=== PATIENT | male | born 1985 | race Caucasian/White ===

== ENCOUNTER 2016-10-16 16:03 | Inpatient (IN) | payer OTHER ==
[2016-10-16 16:55] VITALS: BMI 24.9
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
[2016-10-16] MEDS ORDERED: chlordiazePOXIDE HCL 25 MG CAPSULE PO ONE (21:06)
[2016-10-16] MEDS ORDERED: hydrOXYzine PAMOATE 50 MG CAPSULE (FP) PO PRN (21:06)
[2016-10-16] MEDS ORDERED: ACETAMINOPHEN 325 MG TABLET (FP) PO PRN (21:06)
[2016-10-16] MEDS ORDERED: LOPERAMIDE HCL 2 MG CAPSULE PO PRN (21:06)
[2016-10-16] MEDS ORDERED: MAGNESIUM HYDROX 2400MG/30ML ORAL SUSPENSION 30 ML CUP PO PRN (21:06)
[2016-10-16] MEDS ORDERED: MAGNESIUM CITRATE 300 ML BOTTLE PO PRN (21:06)
[2016-10-16] MEDS ORDERED: MAG HYDROX/AL HYDROX/SIMETH 30 ML UNIT-DOSE CUP PO PRN (21:06)
[2016-10-16] MEDS ORDERED: P-EPHED 60MG/TRIPROLIDI 2.5MG TABLET PO PRN (21:06)
[2016-10-16] MEDS ORDERED: IBUPROFEN 400 MG TABLET (FP) PO PRN (21:06)
[2016-10-16] MEDS ORDERED: chlordiazePOXIDE HCL 25 MG CAPSULE PO PRN (21:06)
[2016-10-16] MEDS ORDERED: guaiFENesin/D-METHORPHAN HB 10 ML UNIT-DOSE CUPS PO PRN (21:06)
[2016-10-16] MEDS ORDERED: MENTHOL/PHENOL 1 EACH UD MM PRN (21:06)
[2016-10-16] MEDS ORDERED: ALBUTEROL SO4 6.7 GM HFA INHALER IH PRN (21:11)
[2016-10-16] MEDS: THIAMINE HCL 100 MG TABLET (FP) PO SCH (23:11)
[2016-10-16] MEDS: chlordiazePOXIDE HCL 25 MG CAPSULE PO SCH (23:11)
[2016-10-16] MEDS: BACITRACIN 30 GM TUBE TOPICAL OINTMENT TP SCH (23:14)
[2016-10-16] MEDS ORDERED: INFLUENZA VACCINE 45 MCG/0.5 ML (MDV 16-17) IM ONE (23:15)
[2016-10-17] MEDS ORDERED: PNEUMOC 13-VAL CONJ-DIP CRM/PF 0.5 ML DISP.SYRIN IM ONE (00:01)
[2016-10-17] MEDS ORDERED: INFLUENZA VACCINE 45 MCG/0.5 ML (MDV 16-17) IM ONE ×2 (00:01→12:00)
[2016-10-17] MEDS ORDERED: PNEUMOCOCCAL 23 VACCINE 0.5 ML VIAL IM ONE ×2 (00:01→12:00)
[2016-10-17] MEDS: chlordiazePOXIDE HCL 25 MG CAPSULE PO SCH ×4 (06:16→22:25)
[2016-10-17] MEDS ORDERED: BACITRACIN 0.9 GM PACKET ONE (09:52)
[2016-10-17 10:15] LABS: MCH 33.3 pg (25.7-33.7); MCHC 34.6 g/dl (32.0-35.9); MEAN CELL VOLUME 96.3 fl (80-96); MEAN PLT VOLUME 8.5 fl (7.5-11.1); PLATELET COUNT 153 K/MM3 (134-434); RDW 13.1 % (11.9-15.9); WHITE BLOOD COUNT 3.6 K/mm3 (4.0-10.0)
[2016-10-17 10:24] LABS: ALBUMIN 3.4 g/dl (3.4-5.0); ANION GAP 11 (8-16); CALCIUM 8.3 mg/dL (8.5-10.1); CO2 27 mmol/L (21-32); GLUCOSE,RANDOM 99 mg/dL (74-106); SGOT/AST 45 U/L (15-37); SGPT/ALT 33 U/L (12-78)
[2016-10-17 10:26] LABS: ALK PHOS 83 U/L (45-117); BILIRUBIN,TOTAL 0.3 mg/dL (0.2-1.0); TOT PROT 7.1 g/dl (6.4-8.2)
[2016-10-17] MEDS: PRENATAL VITAMINS W/ FOLIC ACID TABLET (FP) PO SCH (10:43)
[2016-10-17] MEDS: BACITRACIN 30 GM TUBE TOPICAL OINTMENT TP SCH ×2 (10:43→22:25)
--- NOTE | 2016-10-17 11:26 | PN ---
S CIWA - CIWA Score Nausea/Vomitin Muscle Tremors: 2 Anxiety: 2 Agitation: 2 Paroxysmal Sweats: 3 Orientation: 0-Oriented Tacttile Disturbances: 1-Very Mild Itch/Numbness Auditory Disturbances: 0-None Visual Disturbances: 0-None Headache: 0-None Present CIWA-Ar Total Score: 12 S Progress Note (SOAP) Subjective: interrupted sleep, sweats Objective: 10/17/16 11:24 Vital Signs Temperature 97.8 F 10/17/16 09:52 Pulse Rate 92 H 10/17/16 09:52 Respiratory Rate 18 10/17/16 09:52 Blood Pressure 147/78 10/17/16 09:52 O2 Sat by Pulse Oximetry (%) Laboratory Tests 10/17/16 10/17/16 08:00 08:00 WBC 3.6 L D RBC 4.08 Hgb 13.6 Hct 39.3 MCV 96.3 H MCHC 34.6 RDW 13.1 Plt Count 153 MPV 8.5 Sodium 146 H Potassium 3.4 L Chloride 108 H Carbon Dioxide 27 Anion Gap 11 BUN 9 D Creatinine 1.0 Creat Clearance w eGFR > 60 Random Glucose 99 D Calcium 8.3 L Total Bilirubin 0.3 D AST 45 H D ALT 33 Alkaline Phosphatase 83 Total Protein 7.1 Albumin 3.4 pt aox3 in nad ambulating Assessment: 10/17/16 11:25 withdrawl sx's hypokalemia Plan: cont. detox increase fluids k dur 20meg /d x 2
[2016-10-17 11:46] LABS: HIV 1 & 2 AB NEGATIVE; HIV 1 AGp24 NEGATIVE
[2016-10-17 16:48] LABS: URINE APPEARANCE CLEAR; URINE BILIRUBIN NEGATIVE (NEGATIVE); URINE BLOOD NEGATIVE (NEGATIVE); URINE COLOR YELLOW; URINE GLUCOSE (UA) NEGATIVE (NEGATIVE); URINE KETONE NEGATIVE (NEGATIVE); URINE LEUK ESTERASE NEGATIVE (NEGATIVE); URINE NITRITE NEGATIVE (NEGATIVE); URINE PROTEIN NEGATIVE (NEGATIVE); URINE UROBILINOGEN NEGATIVE E.U./dl (0.2-1.0)
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
--- NOTE | 2016-10-17 21:34 | EKG ---
Test Reason : Blood Pressure : / mmHG Vent. Rate : 086 BPM Atrial Rate : 086 BPM P-R Int : 132 ms QRS Dur : 094 ms QT Int : 356 ms P-R-T Axes : 063 036 044 degrees QTc Int : 426 ms NORMAL SINUS RHYTHM WITH SINUS ARRHYTHMIA VOLTAGE CRITERIA FOR LEFT VENTRICULAR HYPERTROPHY ABNORMAL ECG NO PREVIOUS ECGS AVAILABLE Confirmed by DARI HENNING MD ([id number]) on 10/17/2016 9:34:32 PM Referred By: Confirmed By:DARI HENNING MD
[2016-10-17] MEDS: THIAMINE HCL 100 MG TABLET (FP) PO SCH (22:25)
[2016-10-17] MEDS: diphenhydrAMINE HCL 50 MG CAPSULE PO PRN (22:26)
[2016-10-18] MEDS: chlordiazePOXIDE HCL 25 MG CAPSULE PO SCH ×4 (05:56→17:55)
[2016-10-18] MEDS: BACITRACIN 30 GM TUBE TOPICAL OINTMENT TP SCH ×2 (10:00→22:34)
[2016-10-18] MEDS: PRENATAL VITAMINS W/ FOLIC ACID TABLET (FP) PO SCH (10:42)
[2016-10-18] MEDS: NICOTINE 21 MG/24 HOURS TOPICAL PATCH TD SCH (10:42)
[2016-10-18] MEDS ORDERED: POTASSIUM CHLORIDE TABS 20 MEQ TABLET.ER (FP) PO ONE ×2 (10:58→11:35)
--- NOTE | 2016-10-18 11:03 | PN ---
S CIWA - CIWA Score Nausea/Vomitin Muscle Tremors: 2 Anxiety: 2 Agitation: 1-Slight > Activity Paroxysmal Sweats: 2 Orientation: 0-Oriented Tacttile Disturbances: 1-Very Mild Itch/Numbness Auditory Disturbances: 0-None Visual Disturbances: 0-None Headache: 0-None Present CIWA-Ar Total Score: 10 S Progress Note (SOAP) Subjective: INTERRUPTED SLEEP Objective: 10/18/16 11:00 Vital Signs Temperature 95.4 F L 10/18/16 09:56 Pulse Rate 64 10/18/16 09:56 Respiratory Rate 16 10/18/16 09:56 Blood Pressure 109/59 10/18/16 09:56 O2 Sat by Pulse Oximetry (%) Laboratory Results - last 24 hr 10/17/16 10/17/16 10/17/16 08:00 08:00 14:00 Urine Color Yellow Urine Appearance Clear Urine pH 6.0 Ur Specific [place] 1.025 Urine Protein Negative Urine Glucose (UA) Negative Urine Ketones Negative Urine Blood Negative Urine Nitrite Negative Urine Bilirubin Negative Urine Urobilinogen Negative Ur Leukocyte Esterase Negative RPR Titer Nonreactive HIV 1&2 Antibody Screen Negative HIV P24 Antigen Negative PT AOX3 IN AND AMBULATING Assessment: 10/18/16 11:01 WITHDRAWL SX'S HYPOKALEMIA -K REPLACED Plan: CONT. DETOX INCREASE FLUIDS
[2016-10-18] MEDS: THIAMINE HCL 100 MG TABLET (FP) PO SCH (22:34)
[2016-10-18] MEDS: chlordiazePOXIDE 5 MG CAPSULE PO SCH (22:34)
[2016-10-19] MEDS: chlordiazePOXIDE 5 MG CAPSULE PO SCH ×3 (05:20→17:55)
[2016-10-19] MEDS ORDERED: POTASSIUM CHLORIDE TABS 20 MEQ TABLET.ER (FP) PO ONE (10:00)
[2016-10-19] MEDS: NICOTINE 21 MG/24 HOURS TOPICAL PATCH TD SCH (10:30)
[2016-10-19] MEDS: BACITRACIN 30 GM TUBE TOPICAL OINTMENT TP SCH ×2 (10:30→22:56)
[2016-10-19] MEDS: PRENATAL VITAMINS W/ FOLIC ACID TABLET (FP) PO SCH (10:30)
--- NOTE | 2016-10-19 11:15 | PN ---
BHS Progress Note (SOAP) Subjective: tired Objective: 10/19/16 11:12 Vital Signs Temperature 97.3 F L 10/19/16 09:45 Pulse Rate 84 10/19/16 09:45 Respiratory Rate 18 10/19/16 09:45 Blood Pressure 148/93 10/19/16 09:45 O2 Sat by Pulse Oximetry (%) awake/alert ambulating no acute distress Assessment: 10/19/16 11:15 withdrawal sx Plan: continue detox increase fluids d/c in am
[2016-10-19] MEDS ORDERED: cloNIDine HCL 0.1 MG TABLET PO ONE (15:13)
[2016-10-19] MEDS: chlordiazePOXIDE HCL 10 MG CAPSULE PO SCH (22:54)
[2016-10-19] MEDS: THIAMINE HCL 100 MG TABLET (FP) PO SCH (22:54)
[2016-10-19] MEDS: diphenhydrAMINE HCL 50 MG CAPSULE PO PRN (23:41)
[2016-10-20] MEDS: chlordiazePOXIDE HCL 10 MG CAPSULE PO SCH ×2 (05:53→10:33)
--- NOTE | 2016-10-20 08:24 | PN ---
S Progress Note (SOAP) Subjective: ALERT,NO COMPLAINT Objective: 10/20/16 08:23 Vital Signs Temperature 97.3 F L 10/20/16 06:35 Pulse Rate 66 10/20/16 06:35 Respiratory Rate 16 10/20/16 06:35 Blood Pressure 122/61 10/20/16 06:35 O2 Sat by Pulse Oximetry (%) Assessment: 10/20/16 08:23 DETOX COMPLETED,NO WITHDRAWAL SYMPTOM Plan: DISCHARGE TODAY,FOLLOW UP WITH AFTER CARE PROGRAM ARRANGEMENT
--- NOTE | 2016-10-20 08:29 | DS ---
[facility] Detox Discharge Summary Admission Date: 10/16/16 Discharge Date: 10/20/16 - History Present History: Alcohol Dependence Additional Comments: FOLLOW UP WITH AFTER [facility] PROGRAM ARRANGEMENT REVELATION Pertinent Past History: ASTHMA NICOTINE DEPENDENCE - Physical Exam Results Vital Signs: Vital Signs Temperature 97.3 F L 10/20/16 06:35 Pulse Rate 66 10/20/16 06:35 Respiratory Rate 16 10/20/16 06:35 Blood Pressure 122/61 10/20/16 06:35 O2 Sat by Pulse Oximetry (%) Pertinent Admission Physical Exam Findings: WITHDRAWAL SYMPTOM - Treatment Hospital Course: Detox Protocol Followed, Detoxed Safely, Responded well, Discharged Condition Good, Rehab Referral Accepted Patient has Accepted a Rehab Referral to: [facility] - Medication Discharge Medications: Ambulatory Orders Albuterol Sulfate Inhaler - [Ventolin Hfa Inhaler -] 1 - 2 inh PO Q4H 11/12/15 - Diagnosis (1) Alcohol dependence with uncomplicated withdrawal Current Visit: Yes Status: Acute (2) Asthma Current Visit: Yes Status: Chronic (3) Nicotine dependence Current Visit: Yes Status: Acute (4) Seizure Current Visit: No Status: Suspected (5) Syncope Current Visit: No Status: Suspected (6) Anxiety and depression Current Visit: Yes Status: Acute - AMA Did Patient Leave Against Medical Advice: No
[2016-10-20] MEDS ORDERED: BACITRACIN 0.9 GM PACKET ONE (09:47)
[2016-10-20 09:53] VITALS: BP 125/75; PULSE 94; TEMP 98.2
[2016-10-20] MEDS: NICOTINE 21 MG/24 HOURS TOPICAL PATCH TD SCH (10:33)
[2016-10-20] MEDS: PRENATAL VITAMINS W/ FOLIC ACID TABLET (FP) PO SCH (10:33)
[2016-10-20] MEDS: BACITRACIN 30 GM TUBE TOPICAL OINTMENT TP SCH (10:33)
== END 2016-10-20 13:42 | disposition other institution (70) | DRG 775 ==
LOC: YASAS 16:03 → Y6N 20:51
PROVIDERS: ADMIT Internal Medicine; ATTEND Internal Medicine Addiction Medicine
PROC: HZ2ZZZZ Detoxification Services for Substance Abuse Treatment (ICD-10-PCS; principal; 2016-10-20)
DX: F10.230 Alcohol dependence with withdrawal, uncomplicated (principal); F17.210 Nicotine dependence, cigarettes, uncomplicated; F41.8 Other specified anxiety disorders; J45.20 Mild intermittent asthma, uncomplicated; R56.9 Unspecified convulsions; R55 Syncope and collapse; Z87.81 Personal history of (healed) traumatic fracture
CPT/HCPCS: 36415; 80053; 81003; 85027; 86593; 87389; 93005; 93010

== ENCOUNTER 2016-10-20 14:22 | Inpatient (IN) | payer OTHER ==
[2016-10-20 15:25] VITALS: BMI 26.0
[2016-10-20] MEDS ORDERED: MENTHOL/PHENOL 1 EACH UD MM PRN (15:51)
[2016-10-20] MEDS ORDERED: MAGNESIUM HYDROX 2400MG/30ML ORAL SUSPENSION 30 ML CUP PO PRN (15:51)
[2016-10-20] MEDS ORDERED: ACETAMINOPHEN 325 MG TABLET (FP) PO PRN (15:51)
[2016-10-20] MEDS ORDERED: LOPERAMIDE HCL 2 MG CAPSULE PO PRN (15:51)
[2016-10-20] MEDS ORDERED: guaiFENesin/D-METHORPHAN HB 10 ML UNIT-DOSE CUPS PO PRN (15:51)
[2016-10-20] MEDS ORDERED: hydrOXYzine PAMOATE 50 MG CAPSULE (FP) PO PRN (15:51)
[2016-10-20] MEDS ORDERED: P-EPHED 60MG/TRIPROLIDI 2.5MG TABLET PO PRN (15:51)
[2016-10-20] MEDS ORDERED: MAGNESIUM CITRATE 300 ML BOTTLE PO PRN (15:51)
--- NOTE | 2016-10-20 15:53 | HP ---
[facility] Re[facility] Assess/Revision - Admission History Admitted to Rehab from: [facility] [address] [facility] Date of Admission to Rehab: 10/20/16 - Vital signs Vital Signs: Vital Signs Period Temp Pulse Resp BP Sys/Hall Pulse Ox Last 24 Hr 97.8 F 90 16 132/68 - Findings Detox History & Physical reviewed: Yes Concur with findings: Yes Comments/Additional Findings: FOR REHAB PROTOCOL
[2016-10-20] MEDS: NICOTINE 21 MG/24 HOURS TOPICAL PATCH TD SCH (17:48)
[2016-10-20] MEDS: THIAMINE HCL 100 MG TABLET (FP) PO SCH (21:52)
[2016-10-21] MEDS: PRENATAL VITAMINS W/ FOLIC ACID TABLET (FP) PO SCH (10:02)
[2016-10-21] MEDS: NICOTINE 21 MG/24 HOURS TOPICAL PATCH TD SCH (10:02)
[2016-10-21] MEDS: THIAMINE HCL 100 MG TABLET (FP) PO SCH (22:21)
[2016-10-21] MEDS: IBUPROFEN 400 MG TABLET (FP) PO PRN (22:23)
[2016-10-22] MEDS: NICOTINE 21 MG/24 HOURS TOPICAL PATCH TD SCH (09:42)
[2016-10-22] MEDS: PRENATAL VITAMINS W/ FOLIC ACID TABLET (FP) PO SCH (09:42)
[2016-10-22] MEDS: MAG HYDROX/AL HYDROX/SIMETH 30 ML UNIT-DOSE CUP PO PRN (19:26)
[2016-10-22] MEDS: THIAMINE HCL 100 MG TABLET (FP) PO SCH (22:25)
[2016-10-23] MEDS: PRENATAL VITAMINS W/ FOLIC ACID TABLET (FP) PO SCH (09:52)
[2016-10-23] MEDS: NICOTINE 21 MG/24 HOURS TOPICAL PATCH TD SCH (09:52)
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
[2016-10-23] MEDS: THIAMINE HCL 100 MG TABLET (FP) PO SCH (21:45)
[2016-10-23] MEDS: QUEtiapine FUMARATE 50 MG TABLET PO SCH (21:45)
[2016-10-24] MEDS: PRENATAL VITAMINS W/ FOLIC ACID TABLET (FP) PO SCH (10:41)
[2016-10-24] MEDS: NICOTINE 21 MG/24 HOURS TOPICAL PATCH TD SCH (10:41)
[2016-10-24] MEDS: QUEtiapine FUMARATE 50 MG TABLET PO SCH (21:47)
[2016-10-24] MEDS: THIAMINE HCL 100 MG TABLET (FP) PO SCH (21:47)
[2016-10-25] MEDS: PRENATAL VITAMINS W/ FOLIC ACID TABLET (FP) PO SCH (09:44)
[2016-10-25] MEDS: NICOTINE 21 MG/24 HOURS TOPICAL PATCH TD SCH (09:44)
[2016-10-25] MEDS: QUEtiapine FUMARATE 50 MG TABLET PO SCH (22:16)
[2016-10-25] MEDS: THIAMINE HCL 100 MG TABLET (FP) PO SCH (22:16)
[2016-10-26] MEDS: NICOTINE 21 MG/24 HOURS TOPICAL PATCH TD SCH (09:35)
[2016-10-26] MEDS: PRENATAL VITAMINS W/ FOLIC ACID TABLET (FP) PO SCH (09:35)
[2016-10-26] MEDS: QUEtiapine FUMARATE 50 MG TABLET PO SCH (22:28)
[2016-10-26] MEDS: MAG HYDROX/AL HYDROX/SIMETH 30 ML UNIT-DOSE CUP PO PRN (22:28)
[2016-10-26] MEDS: THIAMINE HCL 100 MG TABLET (FP) PO SCH (22:28)
[2016-10-27] MEDS: NICOTINE 21 MG/24 HOURS TOPICAL PATCH TD SCH (09:47)
[2016-10-27] MEDS: PRENATAL VITAMINS W/ FOLIC ACID TABLET (FP) PO SCH (09:48)
--- NOTE | 2016-10-27 11:08 | PN ---
Psychiatric Progress Note Vital Signs: Vital Signs Period Temp Pulse Resp BP Sys/Hall Pulse Ox Last 24 Hr 98.1 F 67 18-18 117/67 Date of Session: 10/27/16 Chief Complaint:: Refusing to take Seroquel HPI: Patient addressing Alcohol Dependence comorbid with Nicotine Dependence and Substance-Induced Mood Disorder ROS: Asthma Current Medications: Active Medications Generic Name Dose Route Start Last Admin Trade Name Freq PRN Reason Stop Dose Admin Acetaminophen 650 mg 10/20/16 15:51 Tylenol - PO Q4H PRN FEVER OR PAIN Al Hydroxide/Mg Hydroxide 30 ml 10/20/16 15:51 10/26/16 22:28 Mylanta Oral Suspension - PO 30 ml Q6H PRN Administration DYSPEPSIA Diphenhydramine HCl 50 mg 10/20/16 15:51 Benadryl - PO HSMR1 PRN FOR ITCHING Eucalyptus/Menthol/Phenol/Sorbitol 1 each 10/20/16 15:51 Cepastat Lozenge - MM Q4H PRN SORE THROAT Guaifenesin 10 ml 10/20/16 15:51 Robitussin Dm - PO Q6H PRN COUGH Hydroxyzine Pamoate 50 mg 10/20/16 15:51 Vistaril - PO Q4H PRN AGITATION Ibuprofen 400 mg 10/20/16 15:51 10/21/16 22:23 Motrin - PO 400 mg Q6H PRN Administration PAIN Loperamide HCl 4 mg 10/20/16 15:51 Imodium - PO Q6H PRN DIARRHEA Magnesium Hydroxide 30 ml 10/20/16 15:51 Milk Of Magnesia - PO DAILY PRN CONSTIPATION Nicotine 21 mg 10/20/16 16:00 10/27/16 09:47 Nicoderm Patch - TD 21 mg DAILY CHON Administration Multivit/Folic Acid/Iron 1 tab 10/21/16 10:00 10/27/16 09:48 Vitamins ([facility]) - PO 1 tab DAILY CHON Administration Pseudoephedrine/Triprolidine 1 combo 10/20/16 15:51 Actifed - PO TID PRN NASAL CONGESTION Thiamine HCl 100 mg 10/20/16 22:00 10/26/16 22:28 Vitamin B1 - PO Not Given HS [facility] Medication(s) Change(s): Change Seroquel to 50 mg po HS prn for insomnia Current Side Effect: No Lab tests ordered: Yes Lab tests reviewed: Yes Provider note:: Patient seen because fiction and nonfiction prose writer was informed by nursing staff about his refusal to take Seroquel. Told fiction and nonfiction prose writer that he only wants to take Seroquel as needed. He said that he is able to sleep without taking Seroquel when he exercises but he does not exercise every day. He was educated of adverse- effectswith Seroquel including metabolic syndrome & tardive dyskenesia. He said that he was aware of the risks and wants to continue taking but as needed Total face to face time:: 25 Mental Status Exam - Mental Status Exam Alert and Oriented to: Time, Place, Person Cognitive Function: Fair Patient Appearance: Well Groomed Mood: Hopeful, Euthymic Affect: Appropriate Patient Behavior: Cooperative Speech Pattern: Clear Voice Loudness: Normal Thought Process: Intact, Goal Oriented Thought Disorder: Not Present Hallucinations: Denies Suicidal Ideation: Denies Homicidal Ideation: Denies Insight/Judgement: Fair Sleep: Poorly Appetite: Good Muscle strength/Tone: Normal Gait/Station: Normal Psychiatric Treatment Plan - Problem List (1) Alcohol dependence Current Visit: Yes (2) Nicotine dependence Current Visit: Yes (3) Substance induced mood disorder Current Visit: Yes (4) Asthma Current Visit: Yes Initial treatment plan: 1) Discontinue Seroquel 50 mg po HS. 2) Start Seroquel 50 mg po HS prn for insomnia. 3) Monitor progress
[2016-10-27] MEDS: IBUPROFEN 400 MG TABLET (FP) PO PRN (16:56)
[2016-10-27] MEDS: MAG HYDROX/AL HYDROX/SIMETH 30 ML UNIT-DOSE CUP PO PRN (21:59)
[2016-10-27] MEDS: THIAMINE HCL 100 MG TABLET (FP) PO SCH (22:00)
[2016-10-27] MEDS ORDERED: QUEtiapine FUMARATE 50 MG TABLET PO PRN (22:00)
[2016-10-28] MEDS: PRENATAL VITAMINS W/ FOLIC ACID TABLET (FP) PO SCH (09:42)
[2016-10-28] MEDS: NICOTINE 21 MG/24 HOURS TOPICAL PATCH TD SCH (09:42)
[2016-10-28] MEDS: THIAMINE HCL 100 MG TABLET (FP) PO SCH (22:24)
[2016-10-29] MEDS: NICOTINE 21 MG/24 HOURS TOPICAL PATCH TD SCH (10:01)
[2016-10-29] MEDS: PRENATAL VITAMINS W/ FOLIC ACID TABLET (FP) PO SCH (10:01)
[2016-10-29] MEDS: IBUPROFEN 400 MG TABLET (FP) PO PRN (18:30)
[2016-10-29] MEDS: THIAMINE HCL 100 MG TABLET (FP) PO SCH (21:51)
[2016-10-30] MEDS: PRENATAL VITAMINS W/ FOLIC ACID TABLET (FP) PO SCH (09:56)
[2016-10-30] MEDS: NICOTINE 21 MG/24 HOURS TOPICAL PATCH TD SCH (09:57)
[2016-10-30] MEDS: THIAMINE HCL 100 MG TABLET (FP) PO SCH (21:53)
[2016-10-31] MEDS: NICOTINE 21 MG/24 HOURS TOPICAL PATCH TD SCH (09:50)
[2016-10-31] MEDS: PRENATAL VITAMINS W/ FOLIC ACID TABLET (FP) PO SCH (09:50)
[2016-10-31] MEDS ORDERED: COLLOIDAL OATMEAL 1 BAR EACH TP PRN (13:46)
[2016-10-31] MEDS: THIAMINE HCL 100 MG TABLET (FP) PO SCH (23:06)
[2016-11-01] MEDS: NICOTINE 21 MG/24 HOURS TOPICAL PATCH TD SCH ×2 (10:31→11:00)
[2016-11-01] MEDS: PRENATAL VITAMINS W/ FOLIC ACID TABLET (FP) PO SCH ×2 (10:31→11:00)
[2016-11-01] MEDS: THIAMINE HCL 100 MG TABLET (FP) PO SCH (22:48)
[2016-11-02] MEDS: NICOTINE 21 MG/24 HOURS TOPICAL PATCH TD SCH (09:55)
[2016-11-02] MEDS: PRENATAL VITAMINS W/ FOLIC ACID TABLET (FP) PO SCH (09:57)
[2016-11-02] MEDS: THIAMINE HCL 100 MG TABLET (FP) PO SCH (23:05)
[2016-11-03] MEDS: PRENATAL VITAMINS W/ FOLIC ACID TABLET (FP) PO SCH (09:35)
[2016-11-03] MEDS: NICOTINE 21 MG/24 HOURS TOPICAL PATCH TD SCH (09:36)
[2016-11-03] MEDS: THIAMINE HCL 100 MG TABLET (FP) PO SCH (22:23)
[2016-11-04] MEDS: PRENATAL VITAMINS W/ FOLIC ACID TABLET (FP) PO SCH (09:32)
[2016-11-04] MEDS: NICOTINE 21 MG/24 HOURS TOPICAL PATCH TD SCH (09:32)
[2016-11-04] MEDS: THIAMINE HCL 100 MG TABLET (FP) PO SCH (22:57)
[2016-11-05] MEDS: PRENATAL VITAMINS W/ FOLIC ACID TABLET (FP) PO SCH (10:13)
[2016-11-05] MEDS: NICOTINE 21 MG/24 HOURS TOPICAL PATCH TD SCH (10:55)
[2016-11-05] MEDS: THIAMINE HCL 100 MG TABLET (FP) PO SCH (22:18)
[2016-11-06] MEDS: NICOTINE 21 MG/24 HOURS TOPICAL PATCH TD SCH (09:42)
[2016-11-06] MEDS: PRENATAL VITAMINS W/ FOLIC ACID TABLET (FP) PO SCH (09:42)
[2016-11-06] MEDS: THIAMINE HCL 100 MG TABLET (FP) PO SCH (22:23)
[2016-11-07] MEDS: PRENATAL VITAMINS W/ FOLIC ACID TABLET (FP) PO SCH (09:46)
[2016-11-07] MEDS: NICOTINE 21 MG/24 HOURS TOPICAL PATCH TD SCH (09:46)
[2016-11-07] MEDS: THIAMINE HCL 100 MG TABLET (FP) PO SCH (23:16)
[2016-11-08] MEDS: NICOTINE 21 MG/24 HOURS TOPICAL PATCH TD SCH (09:40)
[2016-11-08] MEDS: PRENATAL VITAMINS W/ FOLIC ACID TABLET (FP) PO SCH (09:40)
[2016-11-08] MEDS: THIAMINE HCL 100 MG TABLET (FP) PO SCH (22:03)
[2016-11-08] MEDS: diphenhydrAMINE HCL 50 MG CAPSULE PO PRN ×2 (22:26→23:45)
[2016-11-09] MEDS: PRENATAL VITAMINS W/ FOLIC ACID TABLET (FP) PO SCH (09:54)
[2016-11-09] MEDS: NICOTINE 21 MG/24 HOURS TOPICAL PATCH TD SCH (09:55)
[2016-11-09] MEDS: diphenhydrAMINE HCL 50 MG CAPSULE PO PRN (21:42)
[2016-11-09] MEDS: THIAMINE HCL 100 MG TABLET (FP) PO SCH (21:42)
[2016-11-10] MEDS: PRENATAL VITAMINS W/ FOLIC ACID TABLET (FP) PO SCH (09:51)
[2016-11-10] MEDS: NICOTINE 21 MG/24 HOURS TOPICAL PATCH TD SCH (09:51)
[2016-11-10] MEDS: THIAMINE HCL 100 MG TABLET (FP) PO SCH (23:03)
[2016-11-11] MEDS: NICOTINE 21 MG/24 HOURS TOPICAL PATCH TD SCH (10:02)
[2016-11-11] MEDS: PRENATAL VITAMINS W/ FOLIC ACID TABLET (FP) PO SCH (10:02)
[2016-11-11] MEDS: THIAMINE HCL 100 MG TABLET (FP) PO SCH (21:59)
[2016-11-11] MEDS: diphenhydrAMINE HCL 50 MG CAPSULE PO PRN (23:45)
[2016-11-12] MEDS: NICOTINE 21 MG/24 HOURS TOPICAL PATCH TD SCH (10:18)
[2016-11-12] MEDS: PRENATAL VITAMINS W/ FOLIC ACID TABLET (FP) PO SCH (10:18)
[2016-11-12] MEDS: THIAMINE HCL 100 MG TABLET (FP) PO SCH (22:19)
[2016-11-12] MEDS: diphenhydrAMINE HCL 50 MG CAPSULE PO PRN (23:41)
[2016-11-13] MEDS: PRENATAL VITAMINS W/ FOLIC ACID TABLET (FP) PO SCH (11:14)
[2016-11-13] MEDS: NICOTINE 21 MG/24 HOURS TOPICAL PATCH TD SCH (11:14)
[2016-11-13] MEDS: THIAMINE HCL 100 MG TABLET (FP) PO SCH (21:52)
[2016-11-14] MEDS: diphenhydrAMINE HCL 50 MG CAPSULE PO PRN (00:14)
[2016-11-14] MEDS: PRENATAL VITAMINS W/ FOLIC ACID TABLET (FP) PO SCH (09:43)
[2016-11-14] MEDS: NICOTINE 21 MG/24 HOURS TOPICAL PATCH TD SCH (09:43)
[2016-11-14] MEDS: IBUPROFEN 400 MG TABLET (FP) PO PRN (21:49)
[2016-11-14] MEDS: THIAMINE HCL 100 MG TABLET (FP) PO SCH (22:49)
[2016-11-15] MEDS: PRENATAL VITAMINS W/ FOLIC ACID TABLET (FP) PO SCH (09:47)
[2016-11-15] MEDS: NICOTINE 21 MG/24 HOURS TOPICAL PATCH TD SCH (09:48)
[2016-11-15] MEDS: diphenhydrAMINE HCL 50 MG CAPSULE PO PRN (21:36)
[2016-11-15] MEDS: THIAMINE HCL 100 MG TABLET (FP) PO SCH (21:36)
[2016-11-16] MEDS: PRENATAL VITAMINS W/ FOLIC ACID TABLET (FP) PO SCH (10:28)
[2016-11-16] MEDS: NICOTINE 21 MG/24 HOURS TOPICAL PATCH TD SCH (10:28)
--- NOTE | 2016-11-16 10:42 | PN ---
Psychiatric Progress Note Vital Signs: Vital Signs Period Temp Pulse Resp BP Sys/Hall Pulse Ox Last 24 Hr 97.7 F 96 18-20 138/67 Date of Session: 11/16/16 Chief Complaint:: Psychiatrist Discharge Note HPI: Patient addressing Alcohol Dependence comorbid with Nicotine Dependence and Substance-Induced Mood Disorder ROS: Asthma was medically managed Current Medications: Active Medications Generic Name Dose Route Start Last Admin Trade Name Freq PRN Reason Stop Dose Admin Acetaminophen 650 mg 10/20/16 15:51 11/01/16 11:07 Tylenol - PO 650 mg Q4H PRN Administration FEVER OR PAIN Al Hydroxide/Mg Hydroxide 30 ml 10/20/16 15:51 10/27/16 21:59 Mylanta Oral Suspension - PO 30 ml Q6H PRN Administration DYSPEPSIA Colloidal Oatmeal 1 applic 10/31/16 13:46 11/15/16 09:48 Aveeno Soap - TP 1 bar DAILY PRN Administration HYGEINE Diphenhydramine HCl 50 mg 10/20/16 15:51 11/15/16 21:36 Benadryl - PO 50 mg HSMR1 PRN Administration FOR ITCHING Eucalyptus/Menthol/Phenol/Sorbitol 1 each 10/20/16 15:51 Cepastat Lozenge - MM Q4H PRN SORE THROAT Guaifenesin 10 ml 10/20/16 15:51 Robitussin Dm - PO Q6H PRN COUGH Hydroxyzine Pamoate 50 mg 10/20/16 15:51 Vistaril - PO Q4H PRN AGITATION Ibuprofen 400 mg 10/20/16 15:51 11/14/16 21:49 Motrin - PO 400 mg Q6H PRN Administration PAIN Loperamide HCl 4 mg 10/20/16 15:51 Imodium - PO Q6H PRN DIARRHEA Magnesium Hydroxide 30 ml 10/20/16 15:51 Milk Of Magnesia - PO DAILY PRN CONSTIPATION Nicotine 21 mg 10/20/16 16:00 11/16/16 10:28 Nicoderm Patch - TD 21 mg DAILY CHON Administration Multivit/Folic Acid/Iron 1 tab 10/21/16 10:00 11/16/16 10:28 Vitamins ([facility]) - PO 1 tab DAILY CHON Administration Pseudoephedrine/Triprolidine 1 combo 10/20/16 15:51 Actifed - PO TID PRN NASAL CONGESTION Quetiapine Fumarate 50 mg 10/27/16 22:00 Seroquel - PO HS PRN INSOMNIA Thiamine HCl 100 mg 10/20/16 22:00 11/15/16 21:36 Vitamin B1 - PO 100 mg HS CHON Administration Current Side Effect: No Lab tests ordered: Yes Lab tests reviewed: Yes Provider note:: Patient will complete this program on 11/17/16. He has met his treatment goals and will continue to addres his issues in inpatient program at [facility]. 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 He is stable for discharge on 11/17/16 Total face to face time:: 35 Psychiatric Treatment Plan - Problem List (1) Alcohol dependence Current Visit: Yes (2) Nicotine dependence Current Visit: Yes (3) Substance induced mood disorder Current Visit: Yes (4) Asthma Current Visit: Yes Initial treatment plan: Patient will be discharged tomorrow and referred to [facility] for inpatient treatment
[2016-11-16] MEDS ORDERED: NICOTINE POLACRILEX 4 MG GUM BUC PRN (12:34)
[2016-11-16] MEDS: THIAMINE HCL 100 MG TABLET (FP) PO SCH (23:11)
[2016-11-17 06:56] VITALS: BP 122/67; PULSE 53; TEMP 97.5
== END 2016-11-17 09:00 | disposition home or self-care (01) | DRG 772 ==
LOC: YASAS 14:22 → Y3W 14:23
PROVIDERS: ADMIT Psychiatry & Neurology Psychiatry; ATTEND Psychiatry & Neurology Psychiatry
PROC: HZ42ZZZ Group Counseling for Substance Abuse Treatment, Cognitive-Behavioral (ICD-10-PCS; principal; 2016-11-17)
DX: F10.230 Alcohol dependence with withdrawal, uncomplicated (principal); F17.210 Nicotine dependence, cigarettes, uncomplicated; F19.24 Other psychoactive substance dependence with psychoactive substance-induced mood disorder; J45.901 Unspecified asthma with (acute) exacerbation; G47.00 Insomnia, unspecified